=== PATIENT | male | born 1965 | race American Indian/Alaskan Native ===

== ENCOUNTER 2019-03-08 09:16 | Day surgery (SDC) | payer OTHER ==
[~2019-03-08 09:16] MED LIST: NACL 0.9% 1000 ML 1,000 ML IV SCH
--- NOTE | 2019-03-08 10:14 | Anesthesia Day of Surgery ---
Anesthesia Day of Surgery - Day of Surgery Patient Examined: Yes Patient H&P Reviewed: Yes Patient is NPO: Yes
--- NOTE | 2019-03-08 10:17 | Anesthesia Consultation ---
Anesthesia Consult and Med Hx Date of service: 03/08/19 - Pre-Operative Health Status ASA Pre-Surgery Classification: ASA3 Proposed Anesthetic Plan: MAC - Pulmonary Hx Sleep Apnea: Yes - Cardiovascular System Hx Hypertension: Yes - Endocrine Hx Non-Insulin Dependent Diabetes: Yes - Hematic Hx Sickle Cell Disease: No - Other Systems Hx Obesity: Yes
[2019-03-08] MEDS ORDERED: WATER FOR IRRIG STERILE IR ONE (11:11)
[2019-03-08] MEDS ORDERED: WATER FOR IRRIG STERILE ONE (11:12)
[2019-03-08] MEDS ORDERED: DIPRIVAN 10 MG/ML IV ONE ×3 (11:17→11:20)
[2019-03-08] MEDS ORDERED: SUBLIMAZE ONE (11:20)
--- NOTE | 2019-03-08 11:59 | Procedure Note ---
Date of procedure: 03/08/19 Pre-op diagnosis: Dyspepsia/Colon Polyp Screening/H/O GI Bleeding Post-op diagnosis: other (Mild to Moderate Distal Erosive Esophagitis/Gastritis/No Peptic Ulcer Disease noted/No Diverticular disease noted/Multiple,Small Colon Polyps/ Mild to Moderate Internal Hemorrhoid) Procedure: EGD with Biopsy and Colonoscopy with Biopsy Anesthesia: [facility] [place] Surgeon: KARON ZEPEDA Estimated blood loss: minimal Pathology: list Specimen disposition: to lab Condition: stable Disposition: same day (Check CBC.Treat with PPI and have patient use OTC antihemorrhoidal medication. Follow up in 1 to 2 weeks ([phone]).)
[2019-03-08 12:38] LABS: Basophils % (Auto) 0.3 % (0.0-1.8); Eosinophils # (Auto) 0.2 K/mm3 (0.0-0.4); Eosinophils % (Auto) 2.8 % (0.0-4.3); Hematocrit 34.9 % (35.5-45.6); Hemoglobin 11.9 gm/dl (11.8-15.2); Lymphocytes # (Auto) 1.9 K/mm3 (1.2-5.4); Lymphocytes % (Auto) 32.5 % (13.4-35.0); Mean Corpuscular HGB Conc 34 % (32-34); Mean Corpuscular Volume 84 fl (84-94); Monocytes # (Auto) 0.4 K/mm3 (0.0-0.8); Monocytes % (Auto) 7.3 % (0.0-7.3); Platelet Count 311 K/mm3 (140-440); Red Blood Count 4.17 M/mm3 (3.65-5.03); Red Cell Distribution Width 14.4 % (13.2-15.2)
[2019-03-08 12:49] VITALS: BP 130/80
--- NOTE | 2019-03-08 13:25 | Operative Report ---
PROCEDURE: Esophagogastroduodenoscopy with biopsy. INDICATIONS: The patient is a 53-year-old slightly obese -[place] gentleman with an underlying history of diabetes mellitus, prior history of H. pylori gastritis, family history of stomach cancer. The patient lately has been complaining of some dyspeptic symptoms and some GI bleeding. EGD was done to make sure there was not any significant upper GI pathology present, accounting for his symptoms. DESCRIPTION OF PROCEDURE: The procedure was done after getting informed consent with MAC anesthesia. Instrument was passed through the hypopharynx into the esophagus, which showed mild to moderate distal erosive esophagitis. Biopsy was done from the distal esophagus. Stomach showed antral gastritis. Additional biopsy was done from the gastric antrum, gastric body and angular incisura to rule out for H. pylori. There were no gastric ulcers noted. The pylorus was patent. The duodenum in the first and second portion appeared normal. There was no evidence of any active bleeding within the gastric or the duodenal lumen. ASSESSMENT: Dyspepsia mild to moderate distal erosive esophagitis, gastritis, no peptic ulcer disease noted. PLAN: To treat the patient with PPI and to do a colonoscopy for further assessment. CBC will also be done to check for the patient's hemoglobin and if warranted, a pill endoscopy may also be done if needed. Procedure was done in the GI lab with assistance of the GI lab team, which included Giselle ZAPATA as well as Ashley barbosa and with the assistance of anesthesia. Again, there was minimal bleeding associated with the procedure. No complications associated with the procedure. JOB# [id number] RASHI/MINH
--- NOTE | 2019-03-08 13:59 | Post Anesthesia Evaluation ---
- Post Anesthesia Evaluation Patient Participated: Yes Airway Patent: Yes Stable Respiratory Function: Yes Nausea/Vomiting: No Temp > 96.8F: Yes Pain Manageable: Yes Adequeate Hydration: Yes Anesthesia Complications: No Block Receding Appropriately: Not Applicable Patient on Ventilator: No
[2019-03-08] MEDS ORDERED: XYLOCAINE MPF 2% ONE (14:00)
--- NOTE | 2019-03-08 15:01 | Operative Report ---
PROCEDURE: Colonoscopy with biopsy. INDICATIONS: A 53-year-old slightly obese -[place] gentleman with an underlying history of diabetes, hypertension, who had been having some dyspeptic symptoms and also complained of some GI bleeding. EGD showed presence of [id number] distal erosive esophagitis and gastritis, but no peptic ulcer disease was noted. There was no evidence of any active upper GI bleeding noted. PROCEDURE IN DETAIL: Colonoscopy was done after getting informed consent with MAC anesthesia. Initial rectal exam was unremarkable. Instrument was passed through the rectum onto the cecum, which was identified with ileocecal valve and the appendiceal orifice. Visualization was fair. The scope was retroflexed in the cecum. No additional pathology was noted in the cecum and the scope was then reintroduced and withdrawn to the hepatic flexure and reintroduced to the cecum. There were 2 polyps noted in the ascending colon, which were about 8-9 mm in diameter. These were removed by cold biopsy. The remaining part, most of the transverse colon showed normal mucosa and there was another 8 mm polyp noted in the distal transverse colon that was removed by cold biopsy. The remaining part of the left colon showed normal mucosa. There were no polyps or diverticular disease noted. There was no evidence of bleeding within the colon lumen and the rectum showed mild to moderate internal hemorrhoid, which may have been the cause of the patient's bleeding, but there was no evidence of any bleeding at the moment. ASSESSMENT: Multiple small polyps, two in the proximal colon and one in the distal transverse colon, mild to moderate internal hemorrhoid. No diverticular disease noted. There was minimal bleeding from the biopsy sites. No complications associated with the procedure. The patient will be treated with PPI because of the upper GI findings of moderate distal erosive esophagitis, gastritis and also will be asked to take [id number] anti-hemorrhoidal medication, avoid aspirin and aspirin-related products for the next few days. CBC will be checked to see the patient's hemoglobin and if the hemoglobin is low then possibly a capsule endoscopy can be done as an outpatient. The patient will be asked to follow up in the office in 1-2 weeks' time. The procedure was done in the GI lab with assistance of the GI lab team, which included RN, Giselle Espinoza, as well as Ashley barbosa and assistance of anesthesia. JOB# [id number] RASHI/MINH
== END 2019-03-08 09:17 | disposition home or self-care (01) ==
LOC: GIO 09:16
DX: D12.2 Benign neoplasm of ascending colon (principal); K20.9 Esophagitis, unspecified; K63.5 Polyp of colon; K31.89 Other diseases of stomach and duodenum; K64.8 Other hemorrhoids; E11.9 Type 2 diabetes mellitus without complications; I10 Essential (primary) hypertension; G47.30 Sleep apnea, unspecified; E66.9 Obesity, unspecified; K29.70 Gastritis, unspecified, without bleeding; Z80.0 Family history of malignant neoplasm of digestive organs; Z91.013 Allergy to seafood; Z79.84 Long term (current) use of oral hypoglycemic drugs; Z79.899 Other long term (current) drug therapy; Z68.42 Body mass index [BMI] 45.0-49.9, adult; Z88.8 Allergy status to other drugs, medicaments and biological substances
CPT/HCPCS: 36415; 82962; 85025; 88305; 88342; J2704; J3010; J7030